=== PATIENT | female | born 1935 | race Caucasian/White ===

== ENCOUNTER 2020-04-10 19:33 | Inpatient (IN) | payer SELFPAY ==
[~2020-04-10] VITALS: Ht 152.4 cm; Wt 40.8 kg
[2020-04-10 20:54] LABS: Source, Urine Voided
[2020-04-10 20:57] LABS: BASOPHILS ABSOLUTE AUTO 0.02 K/mm3 (0.00-0.23); BASOPHILS PERCENT AUTO 0 % (0-2); EOSINOPHILS PERCENT AUTO 0 % (0-6); Hematocrit 36.1 % (33.0-51.0); Hemoglobin 12.1 g/dL (11.5-16.0); IMMATURE GRAN ABSOLUTE AUTO 0.09 K/mm3 (0.00-0.10); IMMATURE GRAN PERCENT AUTO 1 % (0-1); LYMPHOCYTES PERCENT AUTO 8 % (21-46); MONOCYTES PERCENT AUTO 5 % (4-13); Mean Corpuscular HGB Conc 33.5 g/dL (31.5-36.5); Mean Corpuscular Volume 89 fL (80-100); NEUTROPHILS ABSOLUTE AUTO 16.07 K/mm3 (1.96-9.15); NEUTROPHILS PERCENT AUTO 87 % (41-73); Platelet Count 423 K/mm3 (150-400); RDW Coefficient Variation 14.3 % (11.7-14.2); RDW Standard Deviation 47.1 fL (35.1-46.3); Red Blood Cell Count 4.04 M/mm3 (3.80-5.20); White Blood Cell Count 18.58 K/mm3 (4.00-11.30)
[2020-04-10 20:57] LABS: Bilirubin, Urine Neg (Neg); Blood, Urine 5+ (Neg); Glucose Qualitative, Urine Neg (Neg); Ketones, Urine Neg (Neg); Leukocyte Esterase, Urine 2+ (Neg); Nitrite, Urine Pos (Neg); Protein, Urine 2+ (Neg); Urobilinogen, Urine NORM (Normal)
[2020-04-10 21:06] LABS: Appearance, Urine Hazy (Clear); Color, Urine Yellow (P-Yellow)
[2020-04-10 21:11] LABS: White Blood Cells, Urine 25-50 /hpf (0-5)
[2020-04-10 21:12] LABS: Bacteria Many /hpf; Hyaline Casts 0-2 /lpf (0-2); Red Blood Cells, Urine 0-2 /hpf (0-2); Squamous Epithelial Cells Not Seen /hpf (Few)
[2020-04-10 21:16] LABS: International Normalized Ratio 1.15; Prothrombin Time Results 12.2 Sec (9.7-11.5)
[2020-04-10 21:26] LABS: Alanine Aminotransfer (ALT/SGP 102 U/L (12-78); Albumin, Blood 2.9 g/dL (3.4-5.0); Albumin/Globulin Ratio 0.5 (0.8-1.8); Alk Phos 113 U/L (50-136); Anion Gap 10 mmol/L (6-16); Aspartate Aminotrans (AST/SGOT 178 U/L (12-37); Bilirubin, Total 0.4 mg/dL (0.1-1.0); Blood Urea Nitrogen 110 mg/dL (8-24); Bun/Creatinine Ratio 59.5 (12.0-20.0); CO2, Blood 18 mmol/L (21-32); Calcium, Blood 9.4 mg/dL (8.5-10.1); Chloride, Blood 118 mmol/L (98-108); Creatinine, Blood 1.85 mg/dL (0.40-1.00); Ethanol (Alcohol), Blood, Med <3 mg/dL; Glomerular Filtration Rate 27 (60-); Glucose, Blood 126 mg/dL (70-99); Potassium, Blood 4.1 mmol/L (3.5-5.5); Sodium, Blood 146 mmol/L (136-145); Total Protein, Blood 8.9 g/dL (6.4-8.2)
[2020-04-10 22:25] LABS: Influenza A, PCR NEGATIVE (NEGATIVE); Influenza B, PCR NEGATIVE (NEGATIVE); Resp Syncytial Virus, PCR NEGATIVE (NEGATIVE); SARS-Cov-2 (COVID-19) PCR, MMC NEGATIVE (NEGATIVE)
[2020-04-10 23:21] LABS: CPK Creatine Kinase 3414 U/L (26-193)
[2020-04-10 23:38] LABS: Creatine Kinase MB 133.4 ng/mL (0.0-3.6); Creatine Kinase MB Index 3.9 (0.0-4.0)
[2020-04-11 05:29] LABS: BASOPHILS ABSOLUTE AUTO 0.02 K/mm3 (0.00-0.23); BASOPHILS PERCENT AUTO 0 % (0-2); EOSINOPHILS PERCENT AUTO 0 % (0-6); Hematocrit 31.1 % (33.0-51.0); Hemoglobin 10.5 g/dL (11.5-16.0); IMMATURE GRAN ABSOLUTE AUTO 0.05 K/mm3 (0.00-0.10); IMMATURE GRAN PERCENT AUTO 0 % (0-1); LYMPHOCYTES ABSOLUTE AUTO 1.07 K/mm3 (0.84-5.20); LYMPHOCYTES PERCENT AUTO 7 % (21-46); MONOCYTES ABSOLUTE AUTO 0.72 K/mm3 (0.16-1.47); MONOCYTES PERCENT AUTO 5 % (4-13); Mean Corpuscular HGB 30.1 pg (26.0-34.0); Mean Corpuscular HGB Conc 33.8 g/dL (31.5-36.5); Mean Corpuscular Volume 89 fL (80-100); Mean Platelet Volume 10.2 fL (9.1-12.4); NEUTROPHILS ABSOLUTE AUTO 14.02 K/mm3 (1.96-9.15); NEUTROPHILS PERCENT AUTO 88 % (41-73); NRBC ABSOLUTE 0.02 K/mm3 (0.00-0.02); NRBC Auto 0.1 /100 WBC (0.0-0.2); Platelet Count 404 K/mm3 (150-400); RDW Coefficient Variation 14.2 % (11.7-14.2); RDW Standard Deviation 45.7 fL (35.1-46.3); Red Blood Cell Count 3.49 M/mm3 (3.80-5.20); White Blood Cell Count 15.88 K/mm3 (4.00-11.30)
[2020-04-11 06:05] LABS: Albumin, Blood 2.4 g/dL (3.4-5.0); Albumin/Globulin Ratio 0.4 (0.8-1.8); Bilirubin, Total 0.5 mg/dL (0.1-1.0); Bun/Creatinine Ratio 64.5 (12.0-20.0); Calcium, Blood 8.7 mg/dL (8.5-10.1); Creatinine, Blood 1.66 mg/dL (0.40-1.00); Globulin, Blood 5.6 g/dL (2.2-4.0); Phosphorus, Blood 6.1 mg/dL (2.5-4.9); Potassium, Blood 3.8 mmol/L (3.5-5.5)
--- NOTE | 2020-04-11 06:49 | NUR ---
0048 PT ADMITTED TO ROOM 363 PER CART FROM ER; REPORT RECEIVED FROM OFELIA ESTEVES RN, CHARGE NURSE.
--- NOTE | 2020-04-11 07:57 | NUR ---
SHIFT SUMMARY: 84 Y/O FEMALE RESTED COMFORTABLY ALL SHIFT WITH PATIENT EASILY ARROUSED BY STAFF; PT ALERT AND ORIENTED X 1 ONLY; HAPPY AND COOPERATIVE; SKIN PALE AND DRY; PT HAS PROLASPED UTERUS THAT IS OPEN TO AIR WITH FOUL SMELLING ODOR NOTED; BED ALARM APPLIED, BED LOW POSITION WITH CALL LIGHT AT SIDE.
--- NOTE | 2020-04-11 10:42 | NUR ---
Pt resting in bed upon arrival. Pt is A&OX1 and denies pain at this time. Pt appears anxious and is requesting something to drink. Pt refusing moistened toothette. Pt keeps repeating requesting for something to drink. Reviewed chart and discussed case with Caremanbilly Vogel. Admitting provider notes suggest daughter Shiela will be available by phone before 10:30 EST or after 1:30 EST. . Plan: Will call daughter for supportive converstation. Palliative Care will remain available.
--- NOTE | 2020-04-11 14:17 | NUR ---
PT DISCHARGED TO [facility]. IV DCD. PT HAS LEFT SIDED DEFICIT- 2P MINIMAL ASSIST. REPORT GIVEN TO NURSE AT [facility]. PT WAS NOT ABLE TO COME TODAY AT HOSPITAL AND AWARE THAT THIS PT LEAVING THE FACILITY. PT STATED DOES NOT HAVE A PHONE. PT VERY EMOTIONAL AND CRYING AT TIMES. PT ENCOURAGED TO EXPRESS FEELINGS, BUT REFUSED TO SAY THE REASON OF SADNESS. COVID NEGATIVE , AND VSS. PT CBG 360 A LUNCH GIVEN 11 UNITS INSULIN.
--- NOTE | 2020-04-11 17:56 | NUR ---
Spiritual care note: Pt appears quite frail and confused. She smiles easily and was quite gracious. We said the Lord's Prayer together and she seemed to like this. Prayer and comfort given. Assured her of God's unending love for her. I will remain available.
--- NOTE | 2020-04-11 18:55 | NUR ---
SHIFT SUMMARY PT AOX1. PT CONFUSED AND CONTINUOSLY SAY SHE HAS TO USE THE BATHROOM- THIS IS RELATED TO HER UTERINE PROLAPSE. PT ALSO PULLED HER IV TODAY; STARTED A NEW IV THIS AFTERNOON. REORIENT THE PT NEEDED, HOWEVER DOES NOT FOLLOW DIRECTION. PT DTR TALKED TO ME THIS AM; UPDATED THE DTR ABOUT THE PT CONDITION. PT HAS MULTIPLE BRUISES, SKIN TEAR, AND UTERINE PROLAPSE WITH SEROSANGUINOUS FLUID- SEE PIC ON CHART. PT MIGHT NEED PLACEMENT; SINCE PT LIVES ALONE AND CANNOT TAKE CARE OF HERSELF. BED ALARM IS ON AND 3 SIDERAILS. BED IS IN THE LOWEST POSITION AND CALL LIGHT WITHIN REACH.
[2020-04-12 05:27] LABS: BASOPHILS ABSOLUTE AUTO 0.01 K/mm3 (0.00-0.23); BASOPHILS PERCENT AUTO 0 % (0-2); EOSINOPHILS ABSOLUTE AUTO 0.01 K/mm3 (0.00-0.68); EOSINOPHILS PERCENT AUTO 0 % (0-6); Hematocrit 27.3 % (33.0-51.0); Hemoglobin 9.2 g/dL (11.5-16.0); IMMATURE GRAN ABSOLUTE AUTO 0.05 K/mm3 (0.00-0.10); IMMATURE GRAN PERCENT AUTO 0 % (0-1); LYMPHOCYTES ABSOLUTE AUTO 1.24 K/mm3 (0.84-5.20); LYMPHOCYTES PERCENT AUTO 10 % (21-46); MONOCYTES ABSOLUTE AUTO 0.63 K/mm3 (0.16-1.47); MONOCYTES PERCENT AUTO 5 % (4-13); Mean Corpuscular HGB 30.4 pg (26.0-34.0); Mean Corpuscular HGB Conc 33.7 g/dL (31.5-36.5); Mean Corpuscular Volume 90 fL (80-100); Mean Platelet Volume 9.9 fL (9.1-12.4); NEUTROPHILS ABSOLUTE AUTO 10.95 K/mm3 (1.96-9.15); NEUTROPHILS PERCENT AUTO 85 % (41-73); Platelet Count 342 K/mm3 (150-400); RDW Coefficient Variation 14.3 % (11.7-14.2); RDW Standard Deviation 46.9 fL (35.1-46.3); Red Blood Cell Count 3.03 M/mm3 (3.80-5.20); White Blood Cell Count 12.89 K/mm3 (4.00-11.30)
[2020-04-12 05:44] LABS: Bun/Creatinine Ratio 56.4 (12.0-20.0); Calcium, Blood 8.1 mg/dL (8.5-10.1); Creatinine, Blood 1.33 mg/dL (0.40-1.00); Potassium, Blood 3.2 mmol/L (3.5-5.5)
--- NOTE | 2020-04-12 07:55 | NUR ---
SHIFT SUMMARY: PATIENT IS ALERT AND ORIENTED ONLY TO SELF. RESISTANT TO CARE AND YELLS OUT "YOUR HURTING ME!" WITH THE SLIGHTEST TOUCH. PATIENT WAS ASSISTED TO THE BSC, STAND AND PIVOT. PATIENT IS UNABLE TO SUPPORT OWN WEIGHT OR ASSIST WITH TRANSFER. PATIENT HAD AN LARGE SOFT FORMED BM. PATIENT DENIES AND MARK RECTAL PAIN. PATIENT REFUSED HS BOWEL CARE MEDS. ATE 100% OF SNACK, POOR PO FLUID INTAKE.
[2020-04-12 08:36] LABS: Percent Saturation 17.6 % (15.0-50.0)
--- NOTE | 2020-04-12 16:50 | NUR ---
SHIFT SUMMARY PT AOX1; CONFUSED AT TIMES. PT REFUSED BLOOD WORK THIS AM AND AFTERNOON; DR PARADA FROM THIS AM ROUNDING. PT STATED THAT SHE DOES NOT WANT ANY MEDICATION OR ANY CREAM ON HER BUTTOM. VAGINAL CREAM APPLIED THIS AFTERNOON DURING CHANGING HER DEPENDS. MEPELEX ON HER COCCYX APPLIED; HEEL AND ELBOW PROTECTORS APPLIED. PT REORIENTED AND RE-EDUCATED ABOUT THE PRESSURE SORES. PT REFUSED ON BEING REPOSTIION, AND STATED THAT SHE DOES NOT THINK SHE NEEDS TO BE TURN AT ALL. PT WILL ALLOW REPOSITION AT TIMES. TALKED TO YURI RHOADES THAT IS WORKING ON GETTING THIS PT IN A FACILITY WITH A HIGHER CARE. CATALYST OPERATOR IS WORKING ON IT. 1630: DISCUSSED WITH PALLIATIVE ABOUT THE PT CONDITION THAT IS DECLINING. PT HAS BEEN REFUSING THE CARE AND ANY MEDICATIONS. LINN JACKSON IS IN THE PT ROOM TALKING WITH PT. BED ALARM IS ON AND CALL LIGHT WITHIN REACH.
--- NOTE | 2020-04-12 17:26 | NUR ---
Supportive visit this evening. Pt resting in bed upon arrival. Pt denies pain at this time. Pt confused but pleasant at this time. Spoke with Bedside RN Karla, Chaplain Prince, discussed case and concerns. Pt is intermittently refusing personal care and is refusing lab draws. Pt does allow Karla to provide care on occasion due to Pt thinking that Karla is a friend named Mandi. Palliative Care will remain available.
--- NOTE | 2020-04-12 18:32 | NUR ---
Spiritual care note: Mrs. Mann remembered saying the Lord's Prayer with me yesterday, but that was about it. Per RN, she has been refusing person hygine care and most medications. Mrs. Mann tells me that God spoke to her and told her not to "let anyone touch her down there." I tried several ways, but was unable to disuade her of this belief. She spoke at length about her love for her friend, "Mandi." She allowed me to pray for her. She seems quite frail and fragile and clearly does not understand what is going on. I will remain available.
--- NOTE | 2020-04-13 07:35 | NUR ---
SHIFT SUMMARY: PATIENT IS A&O TO SELF, REFUSING LAB DRAW YESTERDAY AND TODAY. ONLY SIPS OF NECTAR THICK LIQUIDS, IVF ARE INFUSING PER MD ORDER. INC. OF STOOL AND URINE. PATIENT WAS TRANSFERED TO BS WITH MAX ASSIST X2 FOR A LOOSE BM. VAGINAL PROLAPSE IS PROTRUDING AND IS BLEEDING WITH MARK CARE FOR INC. OPEN AREAS X THREE BILAT PERIRECTAL AREA. BARRIER CREAM IS APPLIED, MEPILEX IS PLACE ON COCCYX FOR REDNESS.
--- NOTE | 2020-04-13 16:50 | NUR ---
SHE ATE SOME BREAKFAST AND TOOK 1 MEDICATION CRUSHED. SHE LATER HAD A TOTAL BEDBATH AND HAS BEEN MOSTLY SLEEPING SINCE. IT WORE HER OUT. SHE STARTED TO YELL AND COMPLAIN/REFUSE BUT SHORTLY AFTER SHE JUST STARTED SINGING THROUGH THE BATH, EVEN WHEN CREAMS WERE APPLIED TO HER PROLAPSED VAGINA AND HER SORE INNER THIGHS AT GROIN. SHE WAS TOO SLEEPY TO SAFELY EAT ANYTHING AT LUNCHTIME. THE CS ASSOCIATE STOPPED IN TO SEE HER THIS AFTERNOON. WILL TRY TO FEED HER DINNER IF IT IS SAFE. IVF'S DC'D TODAY.
--- NOTE | 2020-04-13 17:24 | NUR ---
Spiritual care note: Incredibly, Mrs. Mann appears even more frail today. She was able to say the Lord's Prayer with me, but said little else. She appeared sleepy and weak. Tennis Centre Manager services will remain available.
--- NOTE | 2020-04-13 20:42 | NUR ---
PT REFUSED TAKING OF VITALS AND BRIEF CHECK, NURSE NOTIFIED
--- NOTE | 2020-04-14 06:05 | NUR ---
SHIFT SUMMARY: PATIENT IS A&O TO SELF. LOW GRADE TEMP. OBSERVED. PATIENT REFUSED NEED OF TYLENOL. PO FLUIDS WERE ENCOURAGED AND PATIENT IS TOLERATING PUREED DIET WITH NECTAR THICK LIQIUDS WELL. INC. OF URINE. REFUSED BOWEL CARE MEDICATIONS. BED ALARM IS ON FOR SAFETY.
--- NOTE | 2020-04-14 18:16 | NUR ---
SHIFT SUMMARY PT IS ALERT TO SELF ONLY BUT PLEASANT. PT REFUSED ALL MEDICATIONS TODAY AND IS RELUCTANT TO BE TURNED AND CHANGED WELL. VAGINAL PROLAPSE OBSERVED. PRESSURE ULCERS PRESENT ON GROIN. BARRIER CREAM AND A SMALL FOAM DRESSING APPLIED TO THE AREA. PT TO DISCHARGE TO [facility] ON EITHER FRIDAY OR FRIDAY. VSS; WILL GIVE REPORT TO NIGHT RN.
--- NOTE | 2020-04-15 04:56 | NUR ---
ASSET MANAGER SUMMARY A/O TO SELF ONLY. REFUSES ALMOST ALL CARE. Q2 REPOSITIONING D/T INCREASED SKIN BREAKDOWN AND PRESSURE ULCERS ON COCCYX/MARK AREA. PROLAPSED VAGINA NOTED WELL. YELLS OUT WHEN BEING TURNED OR CHANGED. NO ACUTE CHANGES AT THIS TIME. BED IN LOWEST POSITION WITH CALL LIGHT IN REACH. WILL CONTINUE TO MONITOR AND REPORT TO ONCOMING RN.
--- NOTE | 2020-04-15 17:28 | NUR ---
PT HAS BEEN AOX1 AND WILL REFUSE CERTAIN CARE AT TIMES OR MEDS. PT STATED RICK TOLD HER SHE DID NOT NEED MEDICINE AND REFUSE TO TAKE ANY TODAY. PT WAS ABLE TO HAVE A GOOD BM A TWO PERSON TO BEDSIDE COMMODE. PT RESTING IN BED WILL CONTINUE TO MONITOR. CALL LIGHT IS WITHIN REACH.
--- NOTE | 2020-04-16 05:11 | NUR ---
DIRECTOR CLIENT SUMMARY A/O TO SELF ONLY. Q2 REPOSITIONING TO DECREASE FURTHER SKIN BREAKDOWN. PT YELLS OUT WHILE BEING TURNED. REFUSES MOST CARE, INCLUDING MEDS AND LABS. PLAN IS TO D/C TO [facility] ON . NO ACUTE CHANGES AT THIS TIME. BED IN LOWEST POSITON WITH CALL LIGHT IN REACH. WILL CONTINUE TO MONITOR AND REPORT TO ONCOMING RN.
--- NOTE | 2020-04-16 17:43 | NUR ---
PT AOX1 AND TYPICALLY REFUSES MEDICATIONS AND A LOT OF CARE. PT WAS VERY SLEEPY AND RESTED MOST OF THE MORNING. PT IS A Q2 TURN AND IS INCONTENT. NO DISTRESS NOTED AND BED ALARM IN PLACE. WILL CONTINUE TO MONITOR.
--- NOTE | 2020-04-17 03:55 | NUR ---
RESTAURANT SERVER SUMMARY A/O TO SELF ONLY. PT SEEMS TO BE COMMUNICATING MORE THIS SHIFT COMPARED TO LAST FEW NIGHTS, STILL REFUSES MOST CARE. DENIES PAIN OR SOB. NO ACUTE CHANGES AT THIS TIME. BED IN LOWEST POSITION WITH CALL LIGHT IN REACH. WILL CONTINUE TO MONITOR AND REPORT TO ONCOMING RN.
--- NOTE | 2020-04-17 17:31 | NUR ---
PT AOX1 AND COOPERATIVE WITH MOST CARE. PT STILL CONTINUES TO REFUSE MEDS AND WILL TRY TO REFUSE CHANGING. PT NEEDS TURNED Q2 HRS AND HAS BEEN EATING MORE. PT WAS ABLE TO HAVE A BM ON BEDSIDE COMMODE. PT DOES NOT USE CALL LIGHT AND CALLS OUT. WILL CONTINUE TO MONITOR.
--- NOTE | 2020-04-17 17:54 | NUR ---
Spiritual care note: Mrs. Mann appears more awake today, but she is still quite confused. She was often tearful, but could not explain why. She moved from happy laughter to tearfulness quite quickly. She cried after I prayed for her. She responded well to comfort and assurance of care. No family present. I will remain available.
--- NOTE | 2020-04-17 23:24 | NUR ---
AWAKE AND QUIET. REFUSED MEDICATIONS STATED "I DONT NEED MEDICATIONS - I CAN DO ALL THAT I NEED BY MYSELF", THEN STATED SHE WANTED ONLY FEMALES TO DO HER PERSONAL CARE. FEMALE SHIFT SUPERINTENDENT CAUSTIC CRESYLATE NOTIFIED. CALL LIGHT IN REACH. NECTAR THICK LIQUIDS IN RECH WITH SPOON.
--- NOTE | 2020-04-18 03:31 | NUR ---
INTERMITTENT CALLING OUT IN SHORT BURSTS, "HELP ME!".. BUT WHEN NURSE ARRIVED AT ROOM, AFFECT CALM AND STATED WAS OK, APPEARED TO BE TALKING TO SELF. CALL LIGHT IN REACH
--- NOTE | 2020-04-18 04:25 | NUR ---
SHIFT SUMMARY AWAKE THROUGHOUT MOST OF SHIFT, HAVING REFUSED ALL MEDS, STATED THAT SHE DIDNT NEED THEM. CONTINUES TO READ NEW TESTAMENT AND OCCASIONALLY CALL OUT, BUT WHEN NURSE ENTERS ROOM, PT DENIES PROBLEMS, AND AFFECT REMAINS STOIC. NOTE OCCASIONALLY SEEMS TO TALK TO HERSELF. CALL LIGHT IN REACH.
[2020-04-18] MEDS ORDERED: ACET325 PO (10:49)
[2020-04-18] MEDS ORDERED: DOCU100 PO (10:49)
[2020-04-18] MEDS ORDERED: BISA10S PR (10:49)
[2020-04-18] MEDS ORDERED: Estrace Vagin42.5 GM VAG (10:50)
[2020-04-18] MEDS ORDERED: DULCOLAX400 MG/5 M PO (10:51)
[2020-04-18] MEDS ORDERED: SENNA LAXATIVE8.6 MG PO (10:51)
[2020-04-18] MEDS ORDERED: B-1100 M1 PO (10:51)
--- NOTE | 2020-04-18 12:20 | NUR ---
DISCHARGE SUMMARY PT AxOx1-2 WITH FREQUENT CONFUSION AND DISAGREEABLE TO CARE. PT REFUSED MEDICATIONS THIS AM AND REFUSED POSITION CHANGE AND ATTENDS CHANGE x1. PLAN IS FOR DC TO [facility] TODAY. DC FIRER LOCOMOTIVE INVOLVED IN CASE AND COORDINATING DC. PT REPORTS NOT WANTING TO LEAVE THE HOSPITAL. FREQUENT REDIRECTION REQUIRED DURING CONVERSATIONS. VITALS STABLE. PT WAS TRANSPORTED SAFELY VIA GURNEY BY [facility]. REPORT CALLED TO DARYL VELIZ AT [facility]. DC PACKET SENT WITH TRANSPORTERS.
== END 2020-04-18 12:24 | disposition home health service (06) | DRG 871 ==
LOC: ER 19:33 → MEDS 23:08 → ERHOLD 23:08 → MEDS 04-11 00:51
PROVIDERS: Emergency Medicine; Internal Medicine; Nurse Practitioner Acute Care; ADMIT Internal Medicine
DX: A41.9 Sepsis, unspecified organism (principal); E43 Unspecified severe protein-calorie malnutrition; N39.0 Urinary tract infection, site not specified; E87.0 Hyperosmolality and hypernatremia; N17.9 Acute kidney failure, unspecified; F03.91 Unspecified dementia, unspecified severity, with behavioral disturbance; E87.1 Hypo-osmolality and hyponatremia; M62.82 Rhabdomyolysis; Z68.1 Body mass index [BMI] 19.9 or less, adult; N18.4 Chronic kidney disease, stage 4 (severe); Z66 Do not resuscitate; Z51.5 Encounter for palliative care; Z20.822 Contact with and (suspected) exposure to COVID-19; R65.20 Severe sepsis without septic shock; N99.3 Prolapse of vaginal vault after hysterectomy; W19.XXXA Unspecified fall, initial encounter; N76.0 Acute vaginitis; R74.01 Elevation of levels of liver transaminase levels; F20.9 Schizophrenia, unspecified; Z91.81 History of falling; E86.0 Dehydration; R13.10 Dysphagia, unspecified
CPT/HCPCS: 0241U; 36415; 70450; 80048; 80053; 81001; 82550; 82553; 82728; 82947; 83540; 83550; 83605; 83735; 84100; 84443; 85025; 85610; 87040; 87077; 87086; 87186; 92526; 92610; 93005; 93010; 96372-59; 96374; 97162; 99285-25; A9270; G0480; J0696; J1450; J1650; J1790; J7030

== ENCOUNTER 2022-02-08 08:28 | Emergency (ER) | payer MEDICARE ==
[~2022-02-08] VITALS: Ht 157.5 cm; Wt 63.5 kg
[~2022-02-08 08:28] MED LIST: ACET325 PO; B-1100 M1 PO; BISA10S PR; DOCU100 PO; DULCOLAX400 MG/5 M PO; Estrace Vagin42.5 GM VAG; SENNA LAXATIVE8.6 MG PO
[2022-02-08] MEDS ORDERED: VITAMIN B-1100 M1 PO (08:49)
== END 2022-02-08 11:15 | disposition home or self-care (01) ==
LOC: ER 08:28
DX: S00.03XA Contusion of scalp, initial encounter (principal); W06.XXXA Fall from bed, initial encounter; Z79.899 Other long term (current) drug therapy
CPT/HCPCS: 70450; 99284-25

== ENCOUNTER 2022-02-10 06:30 | Emergency (ER) | payer MEDICARE ==
[~2022-02-10] VITALS: Ht 152.4 cm; Wt 47.6 kg
[~2022-02-10 06:30] MED LIST changes: +VITAMIN B-1100 M1 PO
[2022-02-10] MEDS ORDERED: OLAN5 PO (06:46)
[2022-02-10] MEDS ORDERED: Magic Bullet10 MG PR (06:47)
[2022-02-10] MEDS ORDERED: DOCU100 PO (06:47)
[2022-02-10] MEDS ORDERED: SENN187 PO (06:47)
[2022-02-10] MEDS ORDERED: ACET325 PO (06:47)
[2022-02-10] MEDS ORDERED: LOPE2C PO (06:48)
[2022-02-10] MEDS ORDERED: VITAMIN B-1100 M1 PO (06:48)
== END 2022-02-10 12:18 | disposition home or self-care (01) ==
LOC: ER 06:30
DX: S09.90XA Unspecified injury of head, initial encounter (principal); W05.0XXA Fall from non-moving wheelchair, initial encounter; Z79.899 Other long term (current) drug therapy
CPT/HCPCS: 70450

== ENCOUNTER 2022-02-15 12:13 | Emergency (ER) | payer MEDICARE ==
[~2022-02-15] VITALS: Ht 170.2 cm; Wt 49.9 kg
[~2022-02-15 12:13] MED LIST changes: +LOPE2C PO; +Magic Bullet10 MG PR; +OLAN5 PO; +SENN187 PO
--- NOTE | 2022-02-15 14:10 | NUR ---
Pt frail and contrated stares off. she is able to answer questions. States she has some discomfort but does not want medications. She feels like she contstantly has to urinate. Dr Parry spoke with pt guardian and she wants a CT scan and labs. [facility] She realys multiple falls with head injury she has had ct scans. She has been changing the past few days in her cognition they suspect UTI. They tried to send her to ER a few days ago and she refused. Nurse at [facility] wants the scan so they are dilligant in her care. Advised physician to proceed with scan and labs and UA. Plan is to send her back with treament for UTI if found and supportive comfort care medications. Until [facility] arrives.
[2022-02-15 14:43] LABS: Hematocrit 37.5 % (33.0-51.0); Hemoglobin 12.6 g/dL (11.5-16.0); Mean Corpuscular HGB 29.5 pg (26.0-34.0); Mean Corpuscular HGB Conc 33.6 g/dL (31.5-36.5); Mean Corpuscular Volume 88 fL (80-100); Mean Platelet Volume 10.7 fL (9.1-12.4); Platelet Count 353 K/mm3 (150-400); RDW Coefficient Variation 13.7 % (11.7-14.2); RDW Standard Deviation 43.9 fL (35.1-46.3); Red Blood Cell Count 4.27 M/mm3 (3.80-5.20); White Blood Cell Count 12.31 K/mm3 (4.00-11.30)
[2022-02-15 15:05] LABS: Albumin, Blood 3.1 g/dL (3.4-5.0); Albumin/Globulin Ratio 0.5 (0.8-1.8); Bilirubin, Total 0.4 mg/dL (0.1-1.0); Bun/Creatinine Ratio 45.8 (12.0-20.0); Calcium, Blood 9.4 mg/dL (8.5-10.1); Creatinine, Blood 2.6 mg/dL (0.40-1.00); Globulin, Blood 6.1 g/dL (2.2-4.0); Potassium, Blood 3.9 mmol/L (3.5-5.5); Total Protein, Blood 9.2 g/dL (6.4-8.2)
[2022-02-15 15:10] LABS: BASOPHILS PERCENT MAN 0 % (0-2); EOSINOPHILS PERCENT MAN 0 % (0-6); LYMPHOCYTES ABSOLUTE MAN 2.09 K/mm3 (0.84-5.20); LYMPHOCYTES PERCENT MAN 17 % (21-46); MONOCYTES ABSOLUTE MAN 0.36 K/mm3 (0.16-1.47); MONOCYTES PERCENT MAN 3 % (4-13); NEUTROPHILS ABSOLUTE MAN 9.84 K/mm3 (1.96-9.15); SEG NEUTROPHILS PERCENT MAN 80 % (41-73); TOTAL CELLS COUNTED 100
[2022-02-15] MEDS ORDERED: Ativan0.5 MG PO (15:27)
[2022-02-15] MEDS ORDERED: MORP20L PO (15:27)
== END 2022-02-15 15:47 | disposition home or self-care (01) ==
LOC: ER 12:13
PROVIDERS: Emergency Medicine
DX: S00.83XA Contusion of other part of head, initial encounter (principal); E86.0 Dehydration; F03.90 Unspecified dementia, unspecified severity, without behavioral disturbance, psychotic disturbance, mood disturbance, and anxiety; W19.XXXA Unspecified fall, initial encounter; Z91.81 History of falling; Z79.899 Other long term (current) drug therapy
CPT/HCPCS: 70450; 80053; 85025